=== PATIENT | female | born 1980 | race Caucasian/White ===

== ENCOUNTER → 2023-12-01 12:39 | Outpatient (REF) | payer BC, SELFPAY ==
[2023-12-01 13:59] LABS: Erythrocyte Sed Rate 13 mm/hour (0-20)
[2023-12-01 14:32] LABS: C-Reactive Protein < 5.00 mg/L (0.0-10.00)
[2023-12-03 17:42] LABS: Lyme Antibody Screen, EIA Negative (Negative); Rheumatoid Agglutinin Less Than 10 IU (<10 IU)
[2023-12-03 21:56] LABS: ANA, IgG Reflex to HEp-2 None Detected (None Detected)
== END ==
LOC: RAD 12:39
PROVIDERS: ATTENDING PHYSICIAN Nurse Practitioner Family; FAMILY PHYSICIAN Nurse Practitioner Primary Care
DX: M54.2 Cervicalgia (principal)
CPT/HCPCS: 36415; 72040; 73030; 85652; 86038; 86140; 86430; 86618

== ENCOUNTER 2024-09-01 09:18 | Emergency (ER) | payer BC, SELFPAY ==
[2024-09-01 09:30] VITALS: BP 110/81
--- NOTE | 2024-09-01 09:57 | ED.GENMED ---
History of Present Illness
General
Chief Complaint: Pneumonia Symptoms
Source: patient
Exam Limitations: none
Time Seen by Provider: 09/01/24 09:57
History of Present Illness
History of Present Illness:
Patient complaining of shortness of breath mostly with exertion with some cough and congestion. X-ray 2 days ago was unremarkable however started on doxycycline. No pleuritic pain. Did receive the shingles vaccine last week. History of asthma.
Past History
Past History
ED Past Medical History: Asthma and Other (Palpitations)
ED Past Surgical History: , Orthopedic and Other (Melanoma surgery)
Review of Systems
Review of Systems
All Other Systems: Not applicable
Constitutional: Reports fever and chills
Respiratory: Reports cough; Denies hemoptysis
Cardiac: Denies chest pain
Phy Exam
Physical Exam
Physical Exam:
GENERAL: Alert and oriented in no apparent distress
EYE: Orbits normal.
NECK: Supple, no significant adenopathy.
ENT: Pharynx without erythema
CARDIAC: Regular rate and rhythm without any obvious murmurs.
LUNGS: No respiratory distress. Speech normal. Mild expiratory rhonchi in the bases. No wheezing or rails
ABDOMEN: Soft, without focal tenderness or distention
NEUROLOGICAL: Alert and oriented , grossly non-focal
SKIN: Warm and dry, no rash or lesion, no discoloration, skin intact.
MUSCULOSKELETAL: No edema,no deformity.Good color
PSYCH: Normal and appropriate interaction.
Course
Orders/Labs/Results
Orders:
Orders
09/01/24 09:34
Electrocardiogram (*1) Urgent
Reason for Study: Shortness of Breath
EKG- Treatment ONCE
09/01/24 10:25
IV Insert/Care/Rem.- Treatment PRN
Test Result ONCE
09/01/24 10:45
COVID-19 Antigen Urgent
Source: Nasal Swab
Complete Blood Count/With Diff Urgent
Comprehensive Metabolic Panel Urgent
D-Dimer Urgent
HCG, Serum Qualitative Screen Urgent
NT-proBNP Urgent
Troponin I Urgent
Influenza A+B Rapid Molecular Urgent
RICARDO Source: Nasal Swab
Specimen Description:
09/01/24 10:47
US Periph Venous LOWER Ext RT Urgent
Comment:
Reason For Exam: Pain/short of breath
09/01/24 12:13
Dexamethasone Sod Phosphate [Decadron] 6 mg IV NOW STA
Abnormal Lab Results
09/01/24
10:45
RBC 4.08 L 10^6/uL
(4.20-5.40)
MCH 31.1 H pg
(27.0-31.0)
Alkaline Phosphatase 28 L U/L
(38-126)
09/01/24 10:45
09/01/24 10:45
Vital Signs
Initial and Last Documented VS:
Initial Vital Signs
Temp Pulse Resp BP Pulse Ox
98.0 F 56 16 110/81 96
09/01/24 09:30 09/01/24 09:30 09/01/24 09:30 09/01/24 09:30 09/01/24 09:30
Last Documented Vital Signs
Temp Pulse Resp BP Pulse Ox
98.0 F 53 19 111/81 98
09/01/24 09:30 09/01/24 12:15 09/01/24 12:15 09/01/24 12:00 09/01/24 12:15
MDM/Problems Addressed
Differential Diagnosis Includes:
Most suspicious for viral syndrome with underlying asthma. However would have to entertain pulmonary emboli. Discussed CT scan versus D-dimer. 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 Low risk patient. Will also ultrasound
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 Highly doubt primary cardiac issues she has no risk factors.
*Radiology
Radiology exam reviewed: radiology read reviewed (Negative leg ultrasound)
*Pulse Oximetry
Patient hypoxic: no
*EKG
Interpreted by ED Provider?: Yes
Interpretation: normal
Comparison EKG: no changes
Heart Rate: 59
Rate: bradycardiac
Rhythm: sinus
Ridgely: normal axis
Interval: normal interval
QRS Pattern: normal QRS
Ischemia: no ischemia
*Critical Care Note
Total Time (30-74mins, 75-104mins- exclusive of procedures): Not Applicable
Data Reviewed
Review of Other/Old Records Reveals: Labs and Testing (echo/ekg)
Update Note
Update Note:
ED workup unremarkable. Low suspicion for pulmonary emboli with a negative D-dimer. Negative leg ultrasound. Highly doubt primary cardiac issue. Likely viral with secondary asthmatic issues. Will do short course of steroids to follow-up.
ED Attending Note
-
Portions of this chart may have been created with voice recognition software.� Occasional wrong word or��sound alike� substitutions may have occurred due to the inherent limitations of voice recognition software.
Discharge Plan
Departure
Patient Disposition: Home (Routine Discharge)
Date of Disposition: 09/01/24
Time of Disposition: 12:11
Patient with high blood pressure during this ER visit?: No
Discharge Problem:
Dyspnea
Instructions: Shortness of Breath (Dyspnea) (DC)
Prescriptions:
New
prednisone 50 mg tablet
50 mg PO DAILY Qty: 5 0RF
No Action
albuterol sulfate [ProAir HFA] 90 mcg/actuation HFA aerosol inhaler
2 puff inhalation Q6H PRN (Reason: ASTHMA)
Theragran Tablet
1 tab PO HS
fluticasone propion-salmeterol [Advair Diskus] 500-50 mcg/dose Blister With Device
1 inh INHALATION BIDPRN PRN (Reason: sob)
Patient Comments:
not used x6 months
ibuprofen 200 mg Tablet
600 mg PO DAILYPRN PRN (Reason: mildpain)
Referrals:
Joaquin Paulino CRNP [Family Provider] - Follow up in 2-3 days
Activity Restrictions/Additional Instructions:
Continue and finish the doxycycline
Start the oral prednisone tomorrow
Close follow-up with your primary physician
Return with any concerning symptoms including increasing shortness of breath chest pain fever etc.
Interventions
Interventions:
*Risk Screen - Suicide Last Done: 09/01/24 09:30
*General Assessment Last Done: 09/01/24 10:34
*Neglect/Abuse Screening Last Done: 09/01/24 09:30
ED- Fall Risk Assessment Last Done: 09/01/24 10:34
*ED COVID-19 Vaccine History Last Done: 09/01/24 10:34
*Nursing Disposition Last Done: 09/01/24 12:28
ED- Cardiac Assessment Last Done: 09/01/24 10:52
ED- Pulmonary Assessment Last Done: 09/01/24 10:52
Discharge Date and Time
Discharge Date/Time: 09/01/24 12:28
Print Language: FRENCH
--- NOTE | 2024-09-01 10:13 | EDRN ---
Dr. Barnes in room w/ pt at this time.
[2024-09-01 10:33] VITALS: BMI 24.9
--- NOTE | 2024-09-01 10:35 | EDRN ---
Pt arrives for lightheadedness, SOB rosa on exertion, and dizziness. Seen in Urgent Care Thursday.
[2024-09-01 10:39] VITALS: BP 125/83
[2024-09-01 11:00] VITALS: BP 120/78
[2024-09-01 11:02] LABS: % Basophils 0.6 % (0-2); % Eosinophils 1.4 % (0-6); % Immature Granulocytes 0.2 % (0-0.5); % Lymphocytes 26.4 % (20.5-51.1); % Monocytes 7.3 % (1.7-9.3); % Neutrophils 64.1 % (42.2-75.2); Absolute Eosinophils 0.1 10^3/uL (0-0.7); Absolute Lymphocytes 1.3 10^3/uL (1.2-3.4); Absolute Monocytes 0.4 10^3/uL (0.1-0.6); Absolute Neutrophils 3.2 10^3/uL (1.4-6.5); Hematocrit 37.4 % (37.0-47.0); Hemoglobin 12.7 g/dL (12.0-16.0); Mean Corpuscular Hgb 31.1 pg (27.0-31.0); Mean Corpuscular Volume 91.7 fL (81.0-99.0); Mean Platelet Volume 10.2 fL (7.4-10.4); Nucleated Red Blood Cells % 0 %; Platelet Count 283 10^3/uL (130-400); Red Blood Cell Count 4.08 10^6/uL (4.20-5.40); Red Cell Dist. Width 11.7 % (11.5-14.5); White Blood Cell Count 4.9 10^3/uL (4.8-10.8)
[2024-09-01 11:11] LABS: COVID-19 Antigen Negative (Negative); D-Dimer < 0.27 ug/mlFEU (0.00-0.50); HCG, Serum Qualitative Screen Negative
[2024-09-01 11:14] LABS: ALT (SGPT) 18 U/L (0-35); AST (SGOT) 26 U/L (14-36); Albumin 4.5 g/dl (3.5-5.0); Alkaline Phosphatase 28 U/L (38-126); Blood Urea Nitrogen 13 mg/dl (7-17); Calcium 10.2 mg/dl (8.4-10.2); Carbon Dioxide 27 mmol/L (22-30); Estimated Creatinine Clearance 73 ml/min; Glucose 95 mg/dl (70-99); Total Bilirubin 0.5 mg/dl (0.2-1.3); Total Protein 7.3 g/dl (6.3-8.2); eGFR > 60.00
[2024-09-01 11:26] LABS: NT-proBNP 38.3 pg/ml; Troponin I < 0.012 ng/ml
[2024-09-01 11:45] LABS: Chloride 105 mmol/L (98-107); Potassium 4.3 mmol/L (3.5-5.1); Sodium 143 mmol/L (135-145)
--- NOTE | 2024-09-01 11:58 | EDRN ---
Dr. Barnes in room w/pt at this time.
[2024-09-01 12:00] VITALS: BP 111/81
--- NOTE | 2024-09-01 12:20 | EDRN ---
Pt stated to me that she wishes to hold decadron then decide whether to start prednisone if she is not getting better.
--- NOTE | 2024-09-01 12:27 | EDRN ---
Dr. Barnes informed that pt declined decadron at this time. Pt will get prescription for prednisone filled if needed.
== END 2024-09-01 12:28 | disposition home or self-care (01) ==
LOC: EMR 09:18
PROVIDERS: EMERGENCY PHYSICIAN Emergency Medicine; FAMILY PHYSICIAN Nurse Practitioner Primary Care
DX: R06.00 Dyspnea, unspecified (principal); J45.909 Unspecified asthma, uncomplicated; Z85.820 Personal history of malignant melanoma of skin
CPT/HCPCS: 99284; 80053; 83880; 84484; 84703; 85025; 85379; 87502; 87811; 93005; 93971

== ENCOUNTER → 2024-10-24 20:00 | Outpatient (REF) | payer BC, SELFPAY | LOC: MRI 20:00 | PROVIDERS: ATTENDING PHYSICIAN Specialist; FAMILY PHYSICIAN Nurse Practitioner Primary Care | DX: M25.561 Pain in right knee (principal); M25.461 Effusion, right knee | CPT/HCPCS: 73721 ==

== ENCOUNTER 2024-12-26 07:21 | Outpatient (RCR) | payer BC, SELFPAY | END 2024-12-26 23:59 | disposition home or self-care (01) | LOC: RPT 07:21 | PROVIDERS: ATTENDING PHYSICIAN Specialist; FAMILY PHYSICIAN Nurse Practitioner Primary Care | DX: M25.561 Pain in right knee (principal); S83.241D Other tear of medial meniscus, current injury, right knee, subsequent encounter; M75.41 Impingement syndrome of right shoulder; Z73.6 Limitation of activities due to disability; M62.81 Muscle weakness (generalized) | CPT/HCPCS: 97110; 97162 ==

== ENCOUNTER 2024-12-29 06:29 | Day surgery (SDC) | payer BC, SELFPAY | END 2024-12-29 10:09 | disposition home or self-care (01) | LOC: GI 06:29 | PROVIDERS: ATTENDING PHYSICIAN Internal Medicine Gastroenterology | DX: Z12.11 Encounter for screening for malignant neoplasm of colon (principal); K64.0 First degree hemorrhoids; R13.10 Dysphagia, unspecified; K59.00 Constipation, unspecified; K31.7 Polyp of stomach and duodenum; D12.2 Benign neoplasm of ascending colon; Z83.710 Family history of adenomatous and serrated polyps | CPT/HCPCS: 45385; 43239; 88305; 88342 ==

== ENCOUNTER 2025-01-30 18:59 | Outpatient (RCR) | payer BC, SELFPAY | END 2025-01-30 23:59 | disposition home or self-care (01) | LOC: RPT 18:59 | PROVIDERS: ATTENDING PHYSICIAN Specialist; FAMILY PHYSICIAN Nurse Practitioner Primary Care | DX: M25.561 Pain in right knee (principal); S83.241D Other tear of medial meniscus, current injury, right knee, subsequent encounter; M75.41 Impingement syndrome of right shoulder; Z73.6 Limitation of activities due to disability; M62.81 Muscle weakness (generalized) | CPT/HCPCS: 97010; 97110 ==

== ENCOUNTER → 2025-02-11 07:14 | Outpatient (REF) | payer BC, SELFPAY | LOC: MRI 07:14 | PROVIDERS: ATTENDING PHYSICIAN Specialist | DX: M54.12 Radiculopathy, cervical region (principal) | CPT/HCPCS: 72141 ==

== ENCOUNTER 2025-02-27 19:10 | Outpatient (RCR) | payer BC, SELFPAY | END 2025-02-27 23:59 | disposition home or self-care (01) | LOC: RPT 19:10 | PROVIDERS: ATTENDING PHYSICIAN Specialist; FAMILY PHYSICIAN Nurse Practitioner Primary Care | DX: M25.561 Pain in right knee (principal); S83.241D Other tear of medial meniscus, current injury, right knee, subsequent encounter; M75.41 Impingement syndrome of right shoulder; Z73.6 Limitation of activities due to disability; M62.81 Muscle weakness (generalized); M71.21 Synovial cyst of popliteal space [Baker], right knee; M22.41 Chondromalacia patellae, right knee | CPT/HCPCS: 97010; 97110; 97112 ==

== ENCOUNTER → 2025-03-29 06:59 | Outpatient (REF) | payer BC, SELFPAY | LOC: MRI 06:59 | PROVIDERS: ATTENDING PHYSICIAN Specialist; FAMILY PHYSICIAN Nurse Practitioner Gerontology; REFERRING PHYSICIAN Psychiatry & Neurology Neurology | DX: M25.511 Pain in right shoulder (principal) | CPT/HCPCS: 73221 ==

== ENCOUNTER 2025-03-30 19:02 | Outpatient (RCR) | payer BC, SELFPAY | END 2025-03-30 23:59 | disposition home or self-care (01) | LOC: RPT 19:02 | PROVIDERS: ATTENDING PHYSICIAN Specialist; FAMILY PHYSICIAN Nurse Practitioner Primary Care | DX: M25.561 Pain in right knee (principal); S83.241D Other tear of medial meniscus, current injury, right knee, subsequent encounter; M75.41 Impingement syndrome of right shoulder; Z73.6 Limitation of activities due to disability; M62.81 Muscle weakness (generalized); M71.21 Synovial cyst of popliteal space [Baker], right knee; M22.41 Chondromalacia patellae, right knee | CPT/HCPCS: 97110 ==

== ENCOUNTER → 2025-04-13 07:01 | Outpatient (REF) | payer BC, SELFPAY | LOC: RAD 07:01 | PROVIDERS: ATTENDING PHYSICIAN Surgery Vascular Surgery; FAMILY PHYSICIAN Nurse Practitioner Primary Care | DX: G89.29 Other chronic pain (principal) | CPT/HCPCS: 93923 ==

== ENCOUNTER 2025-04-24 18:47 | Outpatient (RCR) | payer BC, SELFPAY | END 2025-04-24 23:59 | disposition home or self-care (01) | LOC: RPT 18:47 | PROVIDERS: ATTENDING PHYSICIAN Specialist; FAMILY PHYSICIAN Nurse Practitioner Primary Care | DX: M25.561 Pain in right knee (principal); S83.241D Other tear of medial meniscus, current injury, right knee, subsequent encounter; M75.41 Impingement syndrome of right shoulder; Z73.6 Limitation of activities due to disability; M62.81 Muscle weakness (generalized); M71.21 Synovial cyst of popliteal space [Baker], right knee; M22.41 Chondromalacia patellae, right knee; M25.562 Pain in left knee | CPT/HCPCS: 97010; 97110; 97112 ==